=== PATIENT | male | born 1960 | race African-American/Black ===

== ENCOUNTER 2017-09-13 06:43 | Day surgery (SDC) | payer BC ==
[~2017-09-13] VITALS: Ht 188 cm; Wt 108.9 kg
[~2017-09-13 06:43] MED LIST: APRESOLINE100 MG PO; AZOR 10/40 M1 TABLET PO; HYDROCHLOROTHIA25 MG PO; TEKTURNA300 MG PO; VERAPAMIL ER300 MG PO
[2017-09-13 07:11] VITALS: BP 165/89
[2017-09-13] MEDS ORDERED: COLACE100 MG PO (11:07)
[2017-09-13] MEDS ORDERED: DILAUDID4 MG PO (11:07)
[2017-09-13] MEDS ORDERED: ONDANSETRON HCL8 MG PO (11:07)
[2017-09-13 12:53] VITALS: BP 159/76
[2017-09-13 13:56] VITALS: BP 160/80
== END 2017-09-13 14:09 | disposition home or self-care (01) ==
LOC: SDC 06:43
PROC: 0WUF4JZ Supplement Abdominal Wall with Synthetic Substitute, Percutaneous Endoscopic Approach (ICD-10-PCS; principal; 2017-09-13)
DX: K42.0 Umbilical hernia with obstruction, without gangrene (principal); I10 Essential (primary) hypertension; M54.16 Radiculopathy, lumbar region; G47.30 Sleep apnea, unspecified
CPT/HCPCS: C1781; J0131; J0330; J0690; J1100; J2250; J2405; J3010